=== PATIENT | female | born 1995 | race Caucasian/White ===

== ENCOUNTER → 2024-05-22 11:13 | Outpatient (REF) | payer OTHER, SELFPAY | LOC: PNTC 11:13 | PROVIDERS: ATTENDING PHYSICIAN Obstetrics & Gynecology | DX: O45.92 Premature separation of placenta, unspecified, second trimester (principal) | CPT/HCPCS: 36415; 76801; 76813 ==

== ENCOUNTER → 2024-06-19 07:49 | Outpatient (REF) | payer OTHER, SELFPAY | LOC: PNTC 07:49 | PROVIDERS: ATTENDING PHYSICIAN Obstetrics & Gynecology | DX: Z34.82 Encounter for supervision of other normal pregnancy, second trimester (principal) | CPT/HCPCS: 76805; 76817 ==

== ENCOUNTER → 2024-06-29 16:45 | Outpatient (REF) | payer OTHER, SELFPAY | LOC: PNTC 16:45 | PROVIDERS: ATTENDING PHYSICIAN Obstetrics & Gynecology | DX: Z36.86 Encounter for antenatal screening for cervical length (principal) | CPT/HCPCS: 76815; 76817 ==

== ENCOUNTER 2024-07-08 11:29 | Emergency (ER) | payer OTHER, SELFPAY ==
[2024-07-08] VITALS (7 sets, daily range): BP systolic 99–133; BP diastolic 68–76; PULSE 70–80
[2024-07-08 12:31] LABS: % Basophils 0.4 % (0-2); % Eosinophils 1.1 % (0-6); % Immature Granulocytes 0.4 % (0-0.5); % Lymphocytes 16.9 % (20.5-51.1); % Monocytes 9.4 % (1.7-9.3); % Neutrophils 71.8 % (42.2-75.2); Absolute Eosinophils 0.1 10^3/uL (0-0.7); Absolute Lymphocytes 1.4 10^3/uL (1.2-3.4); Absolute Monocytes 0.8 10^3/uL (0.1-0.6); Absolute Neutrophils 5.8 10^3/uL (1.4-6.5); Hematocrit 36.4 % (37.0-47.0); Mean Corp Hgb Conc. 35.7 g/dL (33.0-37.0); Mean Corpuscular Hgb 30.3 pg (27.0-31.0); Mean Corpuscular Volume 84.8 fL (81.0-99.0); Mean Platelet Volume 8.9 fL (7.4-10.4); Nucleated Red Blood Cells % 0 %; Platelet Count 245 10^3/uL (130-400); Red Blood Cell Count 4.29 10^6/uL (4.20-5.40); Red Cell Dist. Width 12.5 % (11.5-14.5); White Blood Cell Count 8.1 10^3/uL (4.8-10.8)
[2024-07-08 12:45] LABS: Blood Urea Nitrogen 11 mg/dl (7-17); Calcium 8.9 mg/dl (8.4-10.2); Carbon Dioxide 22 mmol/L (22-30); Chloride 105 mmol/L (98-107); Estimated Creatinine Clearance > 125 ml/min; Glucose 84 mg/dl (70-99); Sodium 135 mmol/L (135-145); eGFR > 60.00
--- NOTE | 2024-07-08 12:50 | ED.GENMED ---
Addendum entered and electronically signed by Dylan Cristina DO 07/08/24 15:35:
Update patient feeling well has some mild left-sided headache consistent with her prior migraines will order acetaminophen
Original Note:
History of Present Illness
General
Chief Complaint: Fainting Sensation
Source: patient and spouse
Exam Limitations: none
Time Seen by Provider: 07/08/24 12:17
Nursing documentation reviewed up to this point in time: agreed with
History of Present Illness
History of Present Illness:
28-year-old female G2, P0 at 19 weeks prior loss at 24 weeks due to an abruption, history of migraines, normal state of health was [place] walking down the street felt almost like an aura from her migraines we will lost vision temporarily,
no chest pain or shortness of breath no vaginal bleeding felt like she might pass out, she had been standing for about 5 minutes prior to the episode, no abdominal pain, no vaginal bleeding
Past History
Past History
ED Past Medical History: Other (Migraine headache, loss at 24 weeks)
ED Past Surgical History: Gynecological
Social History
Tobacco: Non-smoker
Drug: None
Personal:
Living: with family
Employment: Employed
Family History
Family History: Other (Migraines)
Review of Systems
Review of Systems
All Other Systems: ROS reviewed and negative except as documented in HPI and ROS
EENT: Reports other (Temporary vision loss)
Respiratory: Reports no symptoms
Cardiac: Reports no symptoms
ABD/GI: Reports no symptoms
: Reports no symptoms
Musculoskeletal: Reports no symptoms
Skin: Reports no symptoms
Neurological: Reports dizzy; Denies headache, weakness or numbness
Endocrine: Reports no symptoms
Phy Exam
Physical Exam
Physical Exam:
Physical Exam
General: no apparent distress, not acutely ill
Neck: Pupils round and reactive
Heart: s1/s2 regular rate and rhythm, no murmur. equal radial pulses.
Lungs: no acute respiratory distress. clear bilaterally
Abdomen: Gravid fundus just below the umbilicus
Neuro: alert and oriented. no focal neurological deficits
Skin: no rash
Psychiatric: well kept. interactive and cooperative
Extremities: no edema.
Course
Orders/Labs/Results
Orders:
Orders
07/08/24 12:06
Electrocardiogram (*1) Urgent
Reason for Study: Syncope
07/08/24 12:07
EKG- Treatment ONCE
07/08/24 12:08
Basic Metabolic Panel Urgent
Complete Blood Count/With Diff Urgent
07/08/24 12:49
Orthostatic VS- Treatment ONCE
US Limited Urgent
Reason For Exam: prior abruptions
Abnormal Lab Results
07/08/24
12:08
Hct 36.4 L %
(37.0-47.0)
Absolute Monos (auto) 0.8 H 10^3/uL
(0.1-0.6)
Lymphocytes % 16.9 L %
(20.5-51.1)
Monocytes % 9.4 H %
(1.7-9.3)
07/08/24 12:08
07/08/24 12:08
Vital Signs
Initial and Last Documented VS:
Initial Vital Signs
Temp Pulse Resp BP Pulse Ox
97.9 F 76 18 133/75 100
07/08/24 11:31 07/08/24 11:31 07/08/24 11:31 07/08/24 11:31 07/08/24 11:31
Last Documented Vital Signs
Temp Pulse Resp BP Pulse Ox
97.9 F 69 16 110/76 100
07/08/24 11:31 07/08/24 12:07 07/08/24 12:07 07/08/24 12:07 07/08/24 12:07
*Radiology
Radiology exam reviewed: radiology read reviewed
*Pulse Oximetry
Patient hypoxic: no
*EKG
Interpreted by ED Provider?: Yes
Interpretation: normal
Comparison EKG: no comparison EKG present
Heart Rate: 78
Rate: normal
Rhythm: sinus
Ischemia: no ischemia
*Talent Agent Interpretation
Rate: normal
Interpretation: normal
Heart Rate: 78
Rhythm: sinus
*Critical Care Note
Total Time (30-74mins, 75-104mins- exclusive of procedures): Not Applicable
Update Note
Update Note:
Etiology unclear, her vital signs are stable she is nonfocal neurologic exam does have a history of migraines, she is obviously concerned that she had a prior abruption she has no abdominal cramping or bleeding, no trauma, will provide reassurance,
hold on CT scan as she is second trimester as it would not change analyst, check electrolytes orthostatic vital signs, ultrasound mainly for reassurance to the patient
Update, patient remained stable ultrasound noted
ED Attending Note
-
Portions of this chart may have been created with voice recognition software.� Occasional wrong word or��sound alike� substitutions may have occurred due to the inherent limitations of voice recognition software.
Discharge Plan
Departure
Patient Disposition: Home (Routine Discharge)
Date of Disposition: 07/08/24
Time of Disposition: 15:30
Patient with high blood pressure during this ER visit?: No
Condition: Good
Discharge Problem:
Instructions: Near Fainting (DC)
Prescriptions:
No Action
prenat.vits,lavell,zuv-zyfu-bzwwp Tablet
1 tab PO DAILY
vitamin B6-vitamin E-magnesium Tablet
100 tab PO DAILY
ibuprofen 600 mg Tablet
600 mg PO Q6HPRN PRN (Reason: cramps) 10 Days Qty: 40 0RF
simethicone 80 mg Tablet,Chewable
80 mg PO TIDPRN PRN (Reason: flatulence) Qty: 0 0RF
sennosides-docusate sodium [Stool Softener-Stimulant Laxat] 8.6-50 mg Tablet
1 tab PO DAILYPRN PRN (Reason: constipation) Qty: 0 0RF
oxycodone-acetaminophen 5-325 mg Tablet
1 tab PO Q4HPRN PRN (Reason: moderate pain) 7 Days Qty: 12 0RF
Referrals:
Mike Lee DO [Family Provider] -
Activity Restrictions/Additional Instructions:
Drink plenty of fluids Tylenol if you have any headaches, follow-up with your family doctor and STORE [facility]MINISTRATIVE ASSISTANT
Interventions
Interventions:
*Risk Screen - Suicide Last Done: 07/08/24 11:31
*General Assessment Last Done: 07/08/24 11:31
*Neglect/Abuse Screening Last Done: 07/08/24 11:31
ED- Fall Risk Assessment Last Done: 07/08/24 12:23
*ED COVID-19 Vaccine History Last Done: 07/08/24 12:07
ED- Neurological Assessment Last Done: 07/08/24 12:23
ED- Cardiac Assessment Last Done: 07/08/24 12:23
Discharge Date and Time
Print Language: [place]
[2024-07-08] MEDS: TYLENOL 650 MG PO (15:37)
== END 2024-07-08 15:45 | disposition home or self-care (01) ==
LOC: EMR 11:29
PROVIDERS: EMERGENCY PHYSICIAN Emergency Medicine; FAMILY PHYSICIAN Family Medicine
DX: O99.891 Other specified diseases and conditions complicating pregnancy (principal); R55 Syncope and collapse; O09.292 Supervision of pregnancy with other poor reproductive or obstetric history, second trimester; Z3A.19 19 weeks gestation of pregnancy
CPT/HCPCS: 99284; 76815; 80048; 85025; 93005

== ENCOUNTER → 2024-07-17 07:52 | Outpatient (REF) | payer OTHER, SELFPAY | LOC: PNTC 07:52 | PROVIDERS: ATTENDING PHYSICIAN Obstetrics & Gynecology | DX: P95 Stillbirth (principal); O45.90 Premature separation of placenta, unspecified, unspecified trimester | CPT/HCPCS: 76811; 76817 ==

== ENCOUNTER → 2024-07-31 16:21 | Outpatient (REF) | payer OTHER, SELFPAY | LOC: PNTC 16:21 | PROVIDERS: ATTENDING PHYSICIAN Obstetrics & Gynecology | DX: Z36.86 Encounter for antenatal screening for cervical length (principal) | CPT/HCPCS: 76815; 76817 ==

== ENCOUNTER → 2024-08-14 16:49 | Outpatient (REF) | payer OTHER, SELFPAY | LOC: PNTC 16:49 | PROVIDERS: ATTENDING PHYSICIAN Obstetrics & Gynecology | DX: Z36.86 Encounter for antenatal screening for cervical length (principal) | CPT/HCPCS: 76816; 76817 ==

== ENCOUNTER → 2024-08-28 08:17 | Outpatient (REF) | payer OTHER, SELFPAY | LOC: PNTC 08:17 | PROVIDERS: ATTENDING PHYSICIAN Obstetrics & Gynecology | DX: O09.299 Supervision of pregnancy with other poor reproductive or obstetric history, unspecified trimester (principal) | CPT/HCPCS: 76817 ==

== ENCOUNTER → 2024-09-11 13:15 | Outpatient (REF) | payer OTHER, SELFPAY | LOC: PNTC 13:15 | PROVIDERS: ATTENDING PHYSICIAN Obstetrics & Gynecology | DX: O26.20 Pregnancy care for patient with recurrent pregnancy loss, unspecified trimester (principal); O45.00 Premature separation of placenta with coagulation defect, unspecified; Z87.59 Personal history of other complications of pregnancy, childbirth and the puerperium | CPT/HCPCS: 76816; 76817 ==

== ENCOUNTER → 2024-10-09 16:19 | Outpatient (REF) | payer OTHER, SELFPAY | LOC: PNTC 16:19 | PROVIDERS: ATTENDING PHYSICIAN Obstetrics & Gynecology | DX: O44.30 Partial placenta previa with hemorrhage, unspecified trimester (principal); O26.20 Pregnancy care for patient with recurrent pregnancy loss, unspecified trimester; Z87.59 Personal history of other complications of pregnancy, childbirth and the puerperium | CPT/HCPCS: 76816 ==

== ENCOUNTER 2024-10-30 13:53 | Observation (INO) | payer OTHER, SELFPAY | END 2024-10-30 15:01 | disposition home or self-care (01) | LOC: PNTC-IN 13:53 | PROVIDERS: ADMITTING PHYSICIAN Obstetrics & Gynecology | DX: O9A.213 Injury, poisoning and certain other consequences of external causes complicating pregnancy, third trimester (principal); S89.90XA Unspecified injury of unspecified lower leg, initial encounter; W17.89XA Other fall from one level to another, initial encounter; Y93.01 Activity, walking, marching and hiking; Y92.9 Unspecified place or not applicable | CPT/HCPCS: 59899; G0378 ==

== ENCOUNTER → 2024-11-06 16:20 | Outpatient (REF) | payer OTHER, SELFPAY | LOC: PNTC 16:20 | PROVIDERS: ATTENDING PHYSICIAN Obstetrics & Gynecology | DX: O26.20 Pregnancy care for patient with recurrent pregnancy loss, unspecified trimester (principal); Z87.59 Personal history of other complications of pregnancy, childbirth and the puerperium | CPT/HCPCS: 76816 ==

== ENCOUNTER 2024-11-10 07:14 | Inpatient (IN) | payer OTHER, SELFPAY ==
[2024-11-10 07:37] VITALS: BP 105/73; BMI 33.8
[2024-11-10] MEDS: LR 1000 IV (08:21)
[2024-11-10 08:31] LABS: Hematocrit 37.4 % (37.0-47.0); Hemoglobin 13.1 g/dL (12.0-16.0); Mean Corpuscular Volume 88.6 fL (81.0-99.0); Mean Platelet Volume 10.2 fL (7.4-10.4); Platelet Count 187 10^3/uL (130-400); Red Blood Cell Count 4.22 10^6/uL (4.20-5.40); Red Cell Dist. Width 12.7 % (11.5-14.5); White Blood Cell Count 8.2 10^3/uL (4.8-10.8)
[2024-11-10] MEDS: ANCEF 10 IV (11:37)
[2024-11-10] MEDS: BICITRA 30 ML PO (11:37)
[2024-11-10] MEDS: TYLENOL 1000 MG PO (11:38)
[2024-11-10] MEDS: PITOCIN 30 UNITS/NSS 500 ML IV (18:35)
[2024-11-10] MEDS: TORADOL 15 MG IV (19:22)
[2024-11-11] MEDS: TYLENOL 650 MG PO (00:03)
[2024-11-11] MEDS: TORADOL 15 MG IV ×3 (01:11→12:41)
[2024-11-11 05:10] LABS: Hematocrit 35.9 % (37.0-47.0); Hemoglobin 12.8 g/dL (12.0-16.0); Mean Corp Hgb Conc. 35.7 g/dL (33.0-37.0); Mean Corpuscular Hgb 31.1 pg (27.0-31.0); Mean Corpuscular Volume 87.3 fL (81.0-99.0); Platelet Count 192 10^3/uL (130-400); Red Blood Cell Count 4.11 10^6/uL (4.20-5.40); Red Cell Dist. Width 12.6 % (11.5-14.5); White Blood Cell Count 14.6 10^3/uL (4.8-10.8)
[2024-11-11] MEDS: MYLICON 80 MG PO (06:54)
[2024-11-11] MEDS: PRENATAL PLUS 1 TABLET PO (09:03)
[2024-11-11] MEDS: SENOKOT-S 1 TABLET PO (09:03)
--- NOTE | 2024-11-11 12:54 | W.PN.ANS.POP ---
Anesthesia Post Operative
- Anesthesia Post Op Note
Vital Signs Stable-See Nursing Note: Yes
Airway Patent: Yes
Adequate Pain Control: Yes
Change in Mental Status: No
Current Postoperative Nausea & Vomiting: No
Anesthesia Complications: No
General Anesthetic Recall: No
Unplanned Admission: No
Post Op Hydration Adequate: Yes
- -
Pt doing well as per RN with no anesthesia related c/o.
[2024-11-11] MEDS: MOTRIN 600 MG PO (18:39)
[2024-11-12] MEDS: MOTRIN 600 MG PO ×4 (00:39→23:42)
[2024-11-12] MEDS: TUMS CHEWABLE TABLET 400 MG PO (04:43)
[2024-11-12] MEDS: MYLICON 80 MG PO (06:22)
[2024-11-12] MEDS: PRENATAL PLUS 1 TABLET PO (08:17)
[2024-11-12] MEDS: SENOKOT-S 1 TABLET PO (08:25)
[2024-11-13] MEDS: MOTRIN 600 MG PO ×2 (05:49→12:55)
[2024-11-13] MEDS: SENOKOT-S 1 TABLET PO (08:05)
[2024-11-13] MEDS: PRENATAL PLUS 1 TABLET PO (08:05)
[2024-11-14 14:27] LABS: Syphilis/T. pallidum Ab Reflex Negative (Negative)
== END 2024-11-13 13:46 | disposition home or self-care (01) | DRG 788 ==
LOC: LDRP 07:14
PROVIDERS: ADMITTING PHYSICIAN Obstetrics & Gynecology; FAMILY PHYSICIAN Family Medicine
PROC: 10D00Z1 Extraction of Products of Conception, Low, Open Approach (ICD-10-PCS; 2024-11-10)
DX: O34.211 Maternal care for low transverse scar from previous cesarean delivery (principal); N85.8 Other specified noninflammatory disorders of uterus; Z3A.37 37 weeks gestation of pregnancy; Z37.0 Single live birth; O69.81X0 Labor and delivery complicated by cord around neck, without compression, not applicable or unspecified; O34.13 Maternal care for benign tumor of corpus uteri, third trimester; D25.2 Subserosal leiomyoma of uterus; O34.03 Maternal care for unspecified congenital malformation of uterus, third trimester; Q51.810 Arcuate uterus
CPT/HCPCS: 36415; 85027; 86780; 86850; 86900; 86901; C1765